=== PATIENT | female | born 1945 | race Asian ===

== ENCOUNTER 2020-06-20 01:09 | Emergency (ER) | payer MEDICARE, BC ==
[~2020-06-20] VITALS: Ht 162.6 cm; Wt 49.9 kg
--- NOTE | 2020-06-20 01:32 | NUR ---
QUEENIED at bedside to take report and follow up with ptJt Whaley #[id number], #[id number]
[2020-06-20] MEDS: ONDANSETRON HCL 4 MG TABLET PO ONE (01:43)
[2020-06-20] MEDS ORDERED: HYDROMORPHONE 1 MG/1 ML DISP.SYRIN ONE ×2 (01:49→02:48)
[2020-06-20] MEDS ORDERED: ONDANSETRON HCL 4 MG TABLET ONE (01:51)
[2020-06-20] MEDS: HYDROMORPHONE 1 MG/1 ML DISP.SYRIN IM ONE ×2 (01:56→03:04)
[2020-06-20] MEDS ORDERED: METF-440 PO (01:58)
[2020-06-20] MEDS ORDERED: LACT1CAP57 PO (01:58)
[2020-06-20] MEDS ORDERED: DIVA250T4 PO (01:58)
[2020-06-20] MEDS ORDERED: ACET-2154 PO (01:58)
[2020-06-20] MEDS ORDERED: QUET25TA PO (01:58)
[2020-06-20] MEDS ORDERED: HYDR-3980 PO (01:58)
[2020-06-20] MEDS ORDERED: vitamin D PO (01:58)
[2020-06-20] MEDS ORDERED: DOCU100C36 PO (01:58)
[2020-06-20] MEDS ORDERED: PANT40TA49 PO (01:58)
[2020-06-20] MEDS ORDERED: ALPR0.255 PO (01:58)
[2020-06-20] MEDS ORDERED: VALS80TA2 PO (01:58)
[2020-06-20] MEDS ORDERED: LACT10SO3 PO (01:58)
[2020-06-20] MEDS ORDERED: MIRT15TA7 PO (01:58)
[2020-06-20] MEDS ORDERED: QUET50TA PO (01:58)
[2020-06-20] MEDS ORDERED: ONDA-104 PO (01:58)
[2020-06-20] MEDS ORDERED: ATOR10TA PO (01:58)
[2020-06-20 02:06] LABS: BASOPHILS % (AUTO) 0.2 % (0.0-2.0); EOSINOPHILS % (AUTO) 0.4 % (0.0-7.0); HEMATOCRIT 32.1 % (31.2-41.9); HEMOGLOBIN 10.9 g/dL (10.9-14.3); LYMPHOCYTES # (AUTO) 1.5 K/uL (20.0-40.0); LYMPHOCYTES % (AUTO) 16.7 % (20.5-51.5); MEAN CORPUSCULAR HEMOGLOBIN 33.9 uug (24.7-32.8); MEAN CORPUSCULAR HGB CONC 34 g/dL (32.3-35.6); MEAN CORPUSCULAR VOLUME 99.8 fL (75.5-95.3); MONOCYTES # (AUTO) 0.8 K/uL (2.0-10.0); MONOCYTES % (AUTO) 8.6 % (0.0-11.0); NEUTROPHILS # (AUTO) 6.6 K/uL (1.8-8.9); NEUTROPHILS % (AUTO) 74.1 % (38.5-71.5); PLATELET COUNT (AUTO) 170 K/uL (179-408); RED BLOOD CELL COUNT(AUTO) 3.21 MIL/uL (3.63-4.92); WHITE BLOOD COUNT (AUTO) 8.9 K/uL (3.8-11.8)
[2020-06-20 02:09] LABS: CREATININE 1.1 mg/dL (0.6-1.3); POTASSIUM 4.4 mmol/L (3.5-5.1)
[2020-06-20 02:14] LABS: BILIRUBIN,DIRECT 0.1 mg/dL (0.0-0.2); BILIRUBIN,TOTAL 0.2 mg/dL (0.2-1.0); TOTAL PROTEIN, SERUM 6.5 g/dL (6.4-8.2)
[2020-06-20 02:26] LABS: *BILIRUBIN,URIN NEGATIVE (NEGATIVE); *BLOOD, URINE NEGATIVE (NEGATIVE); *CLARITY,URINE CLEAR (CLEAR); *COLOR,URINE LIGHT YELLOW (YELLOW); *KETONES,URINE NEGATIVE (NEGATIVE); *UROBILINOGEN,URINE 0.2 E.U./dl (NORMAL); LEUKOCYTE ESTERASE ,URINE NEGATIVE (NEGATIVE); NITRITE, URINE NEGATIVE (NEGATIVE); UGLUCOSE NEGATIVE (NEGATIVE)
[2020-06-20] MEDS ORDERED: OXYC-128 PO ×2 (03:35→03:37)
[2020-06-20] MEDS ORDERED: MAGNESIUM CITRATE 296 ML BOTTLE ONE (04:22)
--- NOTE | 2020-06-20 04:30 | NUR ---
Pt. woke up, has been repeatedly trying to climb out of bed. Staff attempting to reorient the patient, the patient has not been cooperative. The patient is a fall risk. Repositioned patient comfortably. Will continue to monitor.
[2020-06-20] MEDS: MAGNESIUM CITRATE 296 ML BOTTLE PO ONE (04:50)
--- NOTE | 2020-06-20 04:50 | NUR ---
After recieving magnesium citrate the pt. had one vomiting episode of 500cc. The vomit appeared lópez with food chunks in it. was notified. The pt. recieved zofran odt 8mg and now has no nausea or vomiting.
[2020-06-20] MEDS ORDERED: ONDANSETRON ODT 4 MG TAB.RAPDIS ONE (05:00)
[2020-06-20] MEDS: ONDANSETRON ODT 4 MG TAB.RAPDIS SL ONE (05:01)
--- NOTE | 2020-06-20 05:10 | NUR ---
Mamadou roberto in [facility] - 06/20/20 at 0524 by JESSICA Sage eta is 6am for transport to [facility], where the pt. currently resides. Called [facility] to give report, Pan informed me they will call back to take report at 0600.
--- NOTE | 2020-06-20 05:24 | NUR ---
[facility] eta is 6am for transport to [facility], where the pt. currently resides. Called [facility] to give report, Pan informed me they will call back to take report at 0600.
--- NOTE | 2020-06-20 05:24 | NUR ---
[facility] at bedside to [facility] picker pt.
[2020-06-20] MEDS ORDERED: CLONIDINE HCL 0.1 MG TABLET ONE (05:47)
[2020-06-20] MEDS: CLONIDINE HCL 0.1 MG TABLET PO ONE (05:50)
--- NOTE | 2020-06-20 05:50 | NUR ---
No complaints of chest pain, sob.
[2020-06-20] MEDS: ALPRAZOLAM 0.25 MG TABLET PO ONE (06:41)
--- NOTE | 2020-06-20 06:53 | NUR ---
Given report to kallie emt #[phone]
[2020-06-20] MEDS: ALPRAZOLAM 0.25 MG TABLET ONE ×2 (07:05)
[2020-06-20 07:12] VITALS: BP 142/85
== END 2020-06-20 06:50 ==
LOC: ER 01:15
DX: S30.0XXA Contusion of lower back and pelvis, initial encounter (principal); W18.30XA Fall on same level, unspecified, initial encounter; Z91.81 History of falling; Y92.099 Unspecified place in other non-institutional residence as the place of occurrence of the external cause; M81.0 Age-related osteoporosis without current pathological fracture; K59.00 Constipation, unspecified; F09 Unspecified mental disorder due to known physiological condition; E78.5 Hyperlipidemia, unspecified; Z85.118 Personal history of other malignant neoplasm of bronchus and lung; E11.9 Type 2 diabetes mellitus without complications; I49.1 Atrial premature depolarization; Z79.84 Long term (current) use of oral hypoglycemic drugs; Z79.899 Other long term (current) drug therapy; G31.84 Mild cognitive impairment of uncertain or unknown etiology; Z87.440 Personal history of urinary (tract) infections
CPT/HCPCS: 36415; 70450; 72220; 80048; 80076; 81003; 84484; 85025; 85730; 93005; 96372 ×2; 99285; J1170 ×2; 70030-TC; A4663; C1758; Q0162

== ENCOUNTER 2020-06-25 01:05 | Emergency (ER) | payer MEDICARE, BC ==
[~2020-06-25] VITALS: Ht 162.6 cm; Wt 49.9 kg
[~2020-06-25 01:05] MED LIST: ACET-2154 PO; ALPR0.255 PO; ATOR10TA PO; DIVA250T4 PO; DOCU100C36 PO; HYDR-3980 PO; LACT10SO3 PO; LACT1CAP57 PO; METF-440 PO; MIRT15TA7 PO; ONDA-104 PO; OXYC-128 PO; PANT40TA49 PO; QUET25TA PO; QUET50TA PO; VALS80TA2 PO; vitamin D PO
--- NOTE | 2020-06-25 01:05 | NUR ---
Patient BIB [facility] report number [id number]. C/C: [place] [facility] [place] Per [employer] senior director of [employer], patient has history of multiple fall incidences in the past.
--- NOTE | 2020-06-25 01:08 | NUR ---
MD Nj in room to do MSE.
[2020-06-25] MEDS ORDERED: MORPHINE SULFATE 2 MG/1 ML DISP.SYRIN IV ONE (01:15)
[2020-06-25] MEDS ORDERED: MORPHINE SULFATE 4 MG/1 ML DISP.SYRIN ONE (01:35)
[2020-06-25 01:39] LABS: BASOPHILS % (AUTO) 0.2 % (0.0-2.0); EOSINOPHILS % (AUTO) 0.1 % (0.0-7.0); HEMATOCRIT 37.5 % (31.2-41.9); HEMOGLOBIN 12.6 g/dL (10.9-14.3); LYMPHOCYTES # (AUTO) 1.9 K/uL (20.0-40.0); LYMPHOCYTES % (AUTO) 21.1 % (20.5-51.5); MEAN CORPUSCULAR HEMOGLOBIN 33.4 uug (24.7-32.8); MEAN CORPUSCULAR HGB CONC 34 g/dL (32.3-35.6); MEAN CORPUSCULAR VOLUME 99.4 fL (75.5-95.3); MONOCYTES # (AUTO) 0.6 K/uL (2.0-10.0); MONOCYTES % (AUTO) 6.8 % (0.0-11.0); NEUTROPHILS # (AUTO) 6.4 K/uL (1.8-8.9); NEUTROPHILS % (AUTO) 71.8 % (38.5-71.5); PLATELET COUNT (AUTO) 180 K/uL (179-408); RED BLOOD CELL COUNT(AUTO) 3.78 MIL/uL (3.63-4.92); WHITE BLOOD COUNT (AUTO) 8.9 K/uL (3.8-11.8)
--- NOTE | 2020-06-25 01:39 | NUR ---
respiratory support technician in room to take patient to CT scan.
[2020-06-25 01:54] LABS: BILIRUBIN,DIRECT 0.1 mg/dL (0.0-0.2); BILIRUBIN,TOTAL 0.2 mg/dL (0.2-1.0); CREATININE 0.6 mg/dL (0.6-1.3); POTASSIUM 2.9 mmol/L (3.5-5.1)
[2020-06-25] MEDS ORDERED: diphenhydrAMINE 25 MG CAP PO ONE ×2 (02:15→02:28)
[2020-06-25] MEDS ORDERED: POTASSIUM CHLORIDE 20 MEQ TAB.PRT.SR PO ONE (02:15)
[2020-06-25] MEDS ORDERED: POTASSIUM CHLORIDE 20 MEQ TAB.PRT.SR ONE (02:21)
--- NOTE | 2020-06-25 02:30 | NUR ---
Patient resting on bed, requesting water to drink, and given water to drink.
[2020-06-25 02:57] LABS: *BILIRUBIN,URIN NEGATIVE (NEGATIVE); *BLOOD, URINE NEGATIVE (NEGATIVE); *CLARITY,URINE CLEAR (CLEAR); *COLOR,URINE YELLOW (YELLOW); *KETONES,URINE NEGATIVE (NEGATIVE); *UROBILINOGEN,URINE 0.2 E.U./dl (NORMAL); LEUKOCYTE ESTERASE ,URINE TRACE (NEGATIVE); NITRITE, URINE NEGATIVE (NEGATIVE); PH,URINE 6.5 (5.0-8.0); UGLUCOSE NEGATIVE (NEGATIVE)
[2020-06-25] MEDS ORDERED: ONDANSETRON 4 MG/2 ML VIAL ONE (02:57)
[2020-06-25] MEDS ORDERED: ONDANSETRON 4 MG/2 ML VIAL IM ONE (03:00)
--- NOTE | 2020-06-25 03:00 | NUR ---
[facility] at bedside to prepare patient for transport back to her SNF.
[2020-06-25 03:06] LABS: RBC,URINE 0-3 /HPF (0-3)
[2020-06-25 03:07] LABS: BACTERIA,URINE FEW /HPF (NONE SEEN); MUCUS,URINE FEW /LPF (0-FEW); SQUAMOUS EPITHELIAL CELL,UR FEW /HPF (NONE SEEN); URINE AMORPHOUS URATE FEW /HPF
[2020-06-25] MEDS ORDERED: CEPH500C2 PO ×2 (03:08→03:09)
--- NOTE | 2020-06-25 03:15 | NUR ---
Patient discharged to back to her SNF in stable condition. Written and verbal after care instructions given. Patient verbalizes understanding of instructions. Stressed follow up or return to ER for worsening s/s. Patient was transported home via [facility] [address], V/S stable, left with all her personal belongings.
[2020-06-25 03:18] VITALS: BP 164/91
== END 2020-06-25 03:18 ==
LOC: ER 01:06
DX: S09.90XA Unspecified injury of head, initial encounter (principal); S32.10XA Unspecified fracture of sacrum, initial encounter for closed fracture; S32.059A Unspecified fracture of fifth lumbar vertebra, initial encounter for closed fracture; W01.0XXA Fall on same level from slipping, tripping and stumbling without subsequent striking against object, initial encounter; Y92.121 Bathroom in nursing home as the place of occurrence of the external cause; E87.6 Hypokalemia; M85.80 Other specified disorders of bone density and structure, unspecified site; R91.8 Other nonspecific abnormal finding of lung field; N30.90 Cystitis, unspecified without hematuria; Z83.3 Family history of diabetes mellitus; Z82.49 Family history of ischemic heart disease and other diseases of the circulatory system; I67.2 Cerebral atherosclerosis
CPT/HCPCS: 36415; 70450; 71045; 72125; 72131; 72192; 80048; 80076; 81001; 84484; 85025; 85730; 87077; 87086; 93005; 96372; 96374; 99285; J2270; J2405; Q0163; 70030-TC; A4663

== ENCOUNTER 2020-06-27 11:14 | Inpatient (IN) | payer MEDICARE, BC ==
[~2020-06-27] VITALS: Ht 162.6 cm; Wt 49.9 kg
[~2020-06-27 11:14] MED LIST changes: +CEPH500C2 PO
[2020-06-27] MEDS ORDERED: IV NORMAL SALINE 1000 ML BAG IV ONE (11:45)
[2020-06-27] MEDS ORDERED: DIATR MEGLU/DIATRIZOATE SODIUM 120 ML BOTTLE PO ONE (11:45)
[2020-06-27] MEDS ORDERED: DIATR MEGLU/DIATRIZOATE SODIUM 30 ML BOTTLE ONE (12:01)
[2020-06-27] MEDS ORDERED: IOHEXOL 300MG/ML 100 ML INFUS..BTL ONE (12:01)
[2020-06-27] MEDS ORDERED: SWABABLE VALVE TRANSFER SET EA MC ONE (12:01)
[2020-06-27] MEDS ORDERED: IV NORMAL SALINE 250 ML IV ONE (12:01)
[2020-06-27 12:15] LABS: BASOPHILS % (AUTO) 0.4 % (0.0-2.0); EOSINOPHILS % (AUTO) 0.1 % (0.0-7.0); HEMATOCRIT 32.9 % (31.2-41.9); HEMOGLOBIN 10.9 g/dL (10.9-14.3); LYMPHOCYTES % (AUTO) 15.2 % (20.5-51.5); MEAN CORPUSCULAR HEMOGLOBIN 33.1 uug (24.7-32.8); MEAN CORPUSCULAR HGB CONC 33 g/dL (32.3-35.6); MEAN CORPUSCULAR VOLUME 100.1 fL (75.5-95.3); MONOCYTES # (AUTO) 0.6 K/uL (2.0-10.0); MONOCYTES % (AUTO) 8.5 % (0.0-11.0); NEUTROPHILS # (AUTO) 5.1 K/uL (1.8-8.9); NEUTROPHILS % (AUTO) 75.8 % (38.5-71.5); PLATELET COUNT (AUTO) 151 K/uL (179-408); RED BLOOD CELL COUNT(AUTO) 3.28 MIL/uL (3.63-4.92); WHITE BLOOD COUNT (AUTO) 6.7 K/uL (3.8-11.8)
[2020-06-27 12:22] LABS: CREATININE 0.9 mg/dL (0.6-1.3)
[2020-06-27 12:28] LABS: BILIRUBIN,DIRECT 0.1 mg/dL (0.0-0.2); BILIRUBIN,TOTAL 0.3 mg/dL (0.2-1.0); TOTAL PROTEIN, SERUM 6.5 g/dL (6.4-8.2)
[2020-06-27] MEDS ORDERED: ONDANSETRON 4 MG/2 ML VIAL IV ONE (12:45)
[2020-06-27] MEDS ORDERED: MORPHINE SULFATE 4 MG/1 ML DISP.SYRIN IV ONE (12:45)
[2020-06-27 13:08] LABS: *BILIRUBIN,URIN NEGATIVE (NEGATIVE); *BLOOD, URINE 2+ (NEGATIVE); *CLARITY,URINE CLEAR (CLEAR); *COLOR,URINE DARK YELLOW (YELLOW); *KETONES,URINE NEGATIVE (NEGATIVE); *UROBILINOGEN,URINE 0.2 E.U./dl (NORMAL); LEUKOCYTE ESTERASE ,URINE TRACE (NEGATIVE); NITRITE, URINE NEGATIVE (NEGATIVE); UGLUCOSE NEGATIVE (NEGATIVE)
[2020-06-27] MEDS ORDERED: MORPHINE SULFATE 4 MG/1 ML DISP.SYRIN ONE (13:15)
[2020-06-27] MEDS ORDERED: ONDANSETRON 4 MG/2 ML VIAL ONE (13:15)
[2020-06-27] MEDS ORDERED: LORAZEPAM 2 MG/1 ML VIAL ONE (14:29)
[2020-06-27] MEDS ORDERED: LORAZEPAM 2 MG/1 ML VIAL IV ONE (14:30)
[2020-06-27 14:39] LABS: BACTERIA,URINE FEW /HPF (NONE SEEN); MUCUS,URINE FEW /LPF (0-FEW); SQUAMOUS EPITHELIAL CELL,UR FEW /HPF (NONE SEEN); URINE AMORPHOUS URATE FEW /HPF
[2020-06-27 17:00] VITALS: BP 158/65
[2020-06-27] MEDS ORDERED: QUETIAPINE FUMARATE 25 MG TABLET PO PRN (18:30)
[2020-06-27] MEDS ORDERED: MAGNESIUM HYDROXIDE 30 ML LIQUID UDC PO PRN (18:30)
[2020-06-27] MEDS ORDERED: Z GUARD REMEDY PASTE 57 GM TUBE TOP PRN (18:30)
[2020-06-27] MEDS ORDERED: ALPRAZOLAM 0.25 MG TABLET PO PRN (18:30)
[2020-06-27] MEDS ORDERED: DEXTROSE 50% 50 ML DISP.SYRIN IV PRN (19:15)
[2020-06-27] MEDS ORDERED: BISACODYL 5 MG TABLET.DR PO ONE (19:30)
[2020-06-27 20:00] VITALS: BP 124/73
[2020-06-27] MEDS: ATORVASTATIN 10 MG TABLET PO SCH (20:07)
[2020-06-27] MEDS: QUETIAPINE FUMARATE 25 MG TABLET PO SCH (20:07)
[2020-06-27] MEDS: METFORMIN HCL 500 MG TABLET PO SCH (20:07)
[2020-06-27] MEDS: CEFTRIAXONE 1 G in IV DEXTROSE 5% 50 ML IV SCH (20:20)
[2020-06-27] MEDS: BLOOD SUGAR DIAGNOSTIC 1 EACH STRIP VI SCH (20:32)
[2020-06-27] MEDS: INSULIN REGULAR, HUMAN 300 UNIT/3 ML VIAL SQ PRN (20:36)
[2020-06-27] MEDS ORDERED: Medication Not On Formulary EA (Quetiapine Fumarate (Seroquel) 50 MG) PO SCH (21:00)
[2020-06-27] MEDS ORDERED: MIRTAZAPINE 15 MG TABLET PO SCH (21:00)
[2020-06-27] MEDS: HYDROMORPHONE 1 MG/1 ML DISP.SYRIN IV PRN (22:42)
[2020-06-28 04:00] VITALS: BP 113/65
[2020-06-28] MEDS: HYDROMORPHONE 1 MG/1 ML DISP.SYRIN IV PRN ×2 (05:29→13:28)
[2020-06-28] MEDS: PANTOPRAZOLE SODIUM 40 MG TABLET.DR PO SCH (06:05)
[2020-06-28 06:37] LABS: BASOPHILS % (AUTO) 0.4 % (0.0-2.0); EOSINOPHILS % (AUTO) 0.1 % (0.0-7.0); HEMATOCRIT 32.9 % (31.2-41.9); HEMOGLOBIN 10.9 g/dL (10.9-14.3); LYMPHOCYTES # (AUTO) 1.2 K/uL (20.0-40.0); LYMPHOCYTES % (AUTO) 15.9 % (20.5-51.5); MEAN CORPUSCULAR HGB CONC 33 g/dL (32.3-35.6); MEAN CORPUSCULAR VOLUME 99.3 fL (75.5-95.3); MONOCYTES # (AUTO) 0.6 K/uL (2.0-10.0); MONOCYTES % (AUTO) 8.5 % (0.0-11.0); NEUTROPHILS # (AUTO) 5.7 K/uL (1.8-8.9); NEUTROPHILS % (AUTO) 75.1 % (38.5-71.5); PLATELET COUNT (AUTO) 142 K/uL (179-408); RED BLOOD CELL COUNT(AUTO) 3.32 MIL/uL (3.63-4.92); WHITE BLOOD COUNT (AUTO) 7.6 K/uL (3.8-11.8)
[2020-06-28] MEDS: BLOOD SUGAR DIAGNOSTIC 1 EACH STRIP VI SCH ×4 (06:37→21:54)
[2020-06-28 06:59] LABS: BILIRUBIN,TOTAL 0.3 mg/dL (0.2-1.0); CREATININE 0.8 mg/dL (0.6-1.3); MAGNESIUM 2.2 mg/dL (1.8-2.4); PHOSPHOROUS 3.5 mg/dL (2.5-4.9); POTASSIUM 4.3 mmol/L (3.5-5.1); TOTAL PROTEIN, SERUM 6.1 g/dL (6.4-8.2)
[2020-06-28 07:14] LABS: THYROID STIMULATING HORMONE 1.084 mIU/mL (0.358-3.740)
[2020-06-28] MEDS: METFORMIN HCL 500 MG TABLET PO SCH ×2 (08:00→08:33)
[2020-06-28] MEDS ORDERED: SWABABLE VALVE TRANSFER SET EA MC ONE (08:19)
[2020-06-28] MEDS ORDERED: IV NORMAL SALINE 250 ML IV ONE (08:20)
[2020-06-28] MEDS ORDERED: IOHEXOL 300MG/ML 100 ML INFUS..BTL ONE (08:20)
[2020-06-28] MEDS: LACTULOSE 20 G/30 ML LIQUID UDC PO SCH (08:33)
[2020-06-28] MEDS: DOCUSATE SODIUM 100 MG CAPSULE PO SCH ×2 (08:33→17:00)
[2020-06-28] MEDS: CULTURELLE CAPSULE PO SCH ×2 (08:34→17:36)
[2020-06-28] MEDS: VALSARTAN 80 MG TABLET PO SCH (08:34)
[2020-06-28] MEDS: DIVALPROEX 250 MG TABLET.DR PO SCH ×2 (08:34→17:36)
[2020-06-28] MEDS: CHOLECALCIFEROL 1,000 UNIT TABLET PO SCH (08:34)
[2020-06-28] MEDS: LORAZEPAM 2 MG/1 ML VIAL IV PRN (11:28)
[2020-06-28] MEDS: INSULIN REGULAR, HUMAN 300 UNIT/3 ML VIAL SQ PRN ×2 (11:34→21:58)
[2020-06-28 12:00] VITALS: BP 122/78
[2020-06-28] MEDS: TAGRISSO 80 MG TABLET PO SCH (17:36)
[2020-06-28] MEDS: ONDANSETRON 4 MG/2 ML VIAL IV PRN (17:43)
[2020-06-28 20:00] VITALS: BP 131/72
[2020-06-28] MEDS: CEFTRIAXONE 1 G in IV DEXTROSE 5% 50 ML IV SCH (21:29)
[2020-06-28] MEDS: LIDOCAINE 5% PATCH TD SCH (21:30)
[2020-06-28] MEDS: QUETIAPINE FUMARATE 25 MG TABLET PO SCH (21:40)
[2020-06-28] MEDS: ATORVASTATIN 10 MG TABLET PO SCH (21:40)
[2020-06-28] MEDS: MELATONIN 3 MG TABLET PO SCH (21:40)
[2020-06-29 04:33] VITALS: BP 115/58
[2020-06-29] MEDS: PANTOPRAZOLE SODIUM 40 MG TABLET.DR PO SCH (06:03)
[2020-06-29 06:38] LABS: BASOPHILS % (AUTO) 0.2 % (0.0-2.0); HEMATOCRIT 32.4 % (31.2-41.9); HEMOGLOBIN 10.9 g/dL (10.9-14.3); LYMPHOCYTES # (AUTO) 1.4 K/uL (20.0-40.0); LYMPHOCYTES % (AUTO) 12.3 % (20.5-51.5); MEAN CORPUSCULAR HEMOGLOBIN 33.3 uug (24.7-32.8); MEAN CORPUSCULAR HGB CONC 34 g/dL (32.3-35.6); MEAN CORPUSCULAR VOLUME 98.6 fL (75.5-95.3); MONOCYTES # (AUTO) 0.9 K/uL (2.0-10.0); MONOCYTES % (AUTO) 8.3 % (0.0-11.0); NEUTROPHILS # (AUTO) 8.8 K/uL (1.8-8.9); NEUTROPHILS % (AUTO) 79.2 % (38.5-71.5); PLATELET COUNT (AUTO) 150 K/uL (179-408); RED BLOOD CELL COUNT(AUTO) 3.28 MIL/uL (3.63-4.92); WHITE BLOOD COUNT (AUTO) 11.1 K/uL (3.8-11.8)
[2020-06-29] MEDS: BLOOD SUGAR DIAGNOSTIC 1 EACH STRIP VI SCH ×4 (06:39→20:58)
[2020-06-29 07:04] LABS: CREATININE 0.8 mg/dL (0.6-1.3); POTASSIUM 4.2 mmol/L (3.5-5.1)
[2020-06-29 08:00] VITALS: BP 145/71
[2020-06-29] MEDS: VALSARTAN 80 MG TABLET PO SCH (08:12)
[2020-06-29] MEDS: CHOLECALCIFEROL 1,000 UNIT TABLET PO SCH (08:12)
[2020-06-29] MEDS: CULTURELLE CAPSULE PO SCH ×2 (08:12→16:32)
[2020-06-29] MEDS: HYDROCODONE/APAP 5-325MG TABLET PO PRN ×3 (08:12→20:58)
[2020-06-29] MEDS: DOCUSATE SODIUM 100 MG CAPSULE PO SCH ×2 (08:12→16:32)
[2020-06-29] MEDS: DIVALPROEX 250 MG TABLET.DR PO SCH ×2 (08:12→16:32)
[2020-06-29] MEDS: LACTULOSE 20 G/30 ML LIQUID UDC PO SCH (08:13)
[2020-06-29] MEDS: SERTRALINE HCL 50 MG TABLET PO SCH (08:13)
[2020-06-29] MEDS: LIDOCAINE 5% PATCH TD SCH (08:14)
[2020-06-29] MEDS: TAGRISSO 80 MG TABLET PO SCH (10:19)
[2020-06-29 12:00] VITALS: BP 125/53
[2020-06-29 16:00] VITALS: BP 148/69
[2020-06-29] MEDS: INSULIN REGULAR, HUMAN 300 UNIT/3 ML VIAL SQ PRN ×2 (17:04→21:00)
[2020-06-29] MEDS: ATORVASTATIN 10 MG TABLET PO SCH (20:02)
[2020-06-29] MEDS: MELATONIN 3 MG TABLET PO SCH (20:02)
[2020-06-29] MEDS: QUETIAPINE FUMARATE 25 MG TABLET PO SCH (20:02)
[2020-06-29 20:17] VITALS: BP 144/62
[2020-06-29] MEDS: CEFTRIAXONE 1 G in IV DEXTROSE 5% 50 ML IV SCH (20:20)
[2020-06-29] MEDS: LORAZEPAM 2 MG/1 ML VIAL IV PRN (22:00)
[2020-06-30] MEDS: ACETAMINOPHEN 325 MG TABLET PO PRN (00:52)
[2020-06-30] MEDS: HYDROCODONE/APAP 5-325MG TABLET PO PRN ×4 (03:35→18:16)
[2020-06-30 04:51] VITALS: BP 148/47
[2020-06-30] MEDS: PANTOPRAZOLE SODIUM 40 MG TABLET.DR PO SCH (06:13)
[2020-06-30 06:22] LABS: BASOPHILS % (AUTO) 0.3 % (0.0-2.0); EOSINOPHILS % (AUTO) 0.5 % (0.0-7.0); HEMATOCRIT 29.6 % (31.2-41.9); HEMOGLOBIN 9.8 g/dL (10.9-14.3); LYMPHOCYTES # (AUTO) 1.7 K/uL (20.0-40.0); LYMPHOCYTES % (AUTO) 26.3 % (20.5-51.5); MEAN CORPUSCULAR HEMOGLOBIN 33.2 uug (24.7-32.8); MEAN CORPUSCULAR HGB CONC 33 g/dL (32.3-35.6); MEAN CORPUSCULAR VOLUME 99.9 fL (75.5-95.3); MONOCYTES # (AUTO) 0.7 K/uL (2.0-10.0); MONOCYTES % (AUTO) 10.2 % (0.0-11.0); NEUTROPHILS # (AUTO) 4.1 K/uL (1.8-8.9); NEUTROPHILS % (AUTO) 62.7 % (38.5-71.5); PLATELET COUNT (AUTO) 119 K/uL (179-408); RED BLOOD CELL COUNT(AUTO) 2.96 MIL/uL (3.63-4.92); WHITE BLOOD COUNT (AUTO) 6.5 K/uL (3.8-11.8)
[2020-06-30] MEDS: BLOOD SUGAR DIAGNOSTIC 1 EACH STRIP VI SCH ×4 (06:36→20:17)
[2020-06-30 06:57] LABS: POTASSIUM 4.2 mmol/L (3.5-5.1)
[2020-06-30] MEDS: DOCUSATE SODIUM 100 MG CAPSULE PO SCH ×2 (08:53→16:30)
[2020-06-30] MEDS: SERTRALINE HCL 50 MG TABLET PO SCH (08:54)
[2020-06-30] MEDS: LIDOCAINE 5% PATCH TD SCH ×2 (08:57→09:00)
[2020-06-30] MEDS: DIVALPROEX 250 MG TABLET.DR PO SCH ×2 (08:57→18:06)
[2020-06-30] MEDS: VALSARTAN 80 MG TABLET PO SCH (08:57)
[2020-06-30] MEDS: LACTULOSE 20 G/30 ML LIQUID UDC PO SCH (08:57)
[2020-06-30] MEDS: CULTURELLE CAPSULE PO SCH ×2 (08:58→18:06)
[2020-06-30] MEDS: CHOLECALCIFEROL 1,000 UNIT TABLET PO SCH (08:58)
[2020-06-30] MEDS: TAGRISSO 80 MG TABLET PO SCH ×2 (09:00→11:28)
[2020-06-30] MEDS ORDERED: LACTULOSE 20 G/30 ML LIQUID UDC PO PRN (09:45)
[2020-06-30] MEDS ORDERED: IV NS 1000 ML 1,000 ML IV ONE (10:00)
[2020-06-30 11:36] VITALS: BP 137/52
[2020-06-30] MEDS: INSULIN REGULAR, HUMAN 300 UNIT/3 ML VIAL SQ PRN ×2 (11:50→20:54)
[2020-06-30] MEDS: LORAZEPAM 2 MG/1 ML VIAL IV PRN ×2 (14:16→22:29)
[2020-06-30 16:00] VITALS: BP 131/54
[2020-06-30] MEDS: METFORMIN HCL 500 MG TABLET PO SCH (18:06)
[2020-06-30 20:00] VITALS: BP 163/55
[2020-06-30] MEDS: CEFTRIAXONE 1 G in IV DEXTROSE 5% 50 ML IV SCH (20:06)
[2020-06-30] MEDS: ATORVASTATIN 10 MG TABLET PO SCH (20:07)
[2020-06-30] MEDS: MELATONIN 3 MG TABLET PO SCH (20:07)
[2020-06-30] MEDS: QUETIAPINE FUMARATE 25 MG TABLET PO SCH (20:07)
[2020-07-01] VITALS: BP 152/65
[2020-07-01] MEDS: HYDROCODONE/APAP 5-325MG TABLET PO PRN ×3 (00:05→14:12)
[2020-07-01] MEDS: ACETAMINOPHEN 325 MG TABLET PO PRN ×2 (03:05→11:35)
[2020-07-01] MEDS: HYDROMORPHONE 1 MG/1 ML DISP.SYRIN IV PRN (03:28)
[2020-07-01 04:00] VITALS: BP 148/73
[2020-07-01] MEDS: LORAZEPAM 2 MG/1 ML VIAL IV PRN (04:27)
[2020-07-01] MEDS: ONDANSETRON 4 MG/2 ML VIAL IV PRN (04:44)
[2020-07-01] MEDS: PANTOPRAZOLE SODIUM 40 MG TABLET.DR PO SCH (06:29)
[2020-07-01] MEDS: BLOOD SUGAR DIAGNOSTIC 1 EACH STRIP VI SCH ×2 (06:35→11:53)
[2020-07-01 06:48] LABS: BASOPHILS % (AUTO) 0.3 % (0.0-2.0); EOSINOPHILS % (AUTO) 0.4 % (0.0-7.0); HEMATOCRIT 29.7 % (31.2-41.9); LYMPHOCYTES # (AUTO) 1.5 K/uL (20.0-40.0); LYMPHOCYTES % (AUTO) 23.3 % (20.5-51.5); MEAN CORPUSCULAR HEMOGLOBIN 33.7 uug (24.7-32.8); MEAN CORPUSCULAR HGB CONC 34 g/dL (32.3-35.6); MEAN CORPUSCULAR VOLUME 99.9 fL (75.5-95.3); MONOCYTES # (AUTO) 0.6 K/uL (2.0-10.0); MONOCYTES % (AUTO) 8.9 % (0.0-11.0); NEUTROPHILS # (AUTO) 4.2 K/uL (1.8-8.9); NEUTROPHILS % (AUTO) 67.1 % (38.5-71.5); PLATELET COUNT (AUTO) 124 K/uL (179-408); RED BLOOD CELL COUNT(AUTO) 2.97 MIL/uL (3.63-4.92); WHITE BLOOD COUNT (AUTO) 6.2 K/uL (3.8-11.8)
[2020-07-01 06:53] LABS: CREATININE 0.8 mg/dL (0.6-1.3); POTASSIUM 3.4 mmol/L (3.5-5.1)
[2020-07-01] MEDS: METFORMIN HCL 500 MG TABLET PO SCH (08:00)
[2020-07-01] MEDS ORDERED: POTASSIUM CHLORIDE 20 MEQ TAB.PRT.SR PO ONE ×2 (08:00→10:30)
[2020-07-01] MEDS: CHOLECALCIFEROL 1,000 UNIT TABLET PO SCH (09:31)
[2020-07-01] MEDS: VALSARTAN 80 MG TABLET PO SCH (09:31)
[2020-07-01] MEDS: DIVALPROEX 250 MG TABLET.DR PO SCH (09:31)
[2020-07-01] MEDS: SERTRALINE HCL 50 MG TABLET PO SCH (09:32)
[2020-07-01] MEDS: CULTURELLE CAPSULE PO SCH (09:32)
[2020-07-01] MEDS: DOCUSATE SODIUM 100 MG CAPSULE PO SCH (09:32)
[2020-07-01] MEDS: TAGRISSO 80 MG TABLET PO SCH (09:33)
[2020-07-01] MEDS: LIDOCAINE 5% PATCH TD SCH (09:40)
[2020-07-01 11:00] VITALS: BP 164/74
[2020-07-01] MEDS ORDERED: SERT-439 PO (12:10)
[2020-07-01] MEDS ORDERED: LIDO30AD10 TD (12:10)
== END 2020-07-01 14:46 | DRG 388 ==
LOC: ER 11:14 → MEDSURG3 16:02
PROVIDERS: ADMIT Nurse Practitioner Acute Care; ATTEND Nurse Practitioner Acute Care
PROC: 009U3ZX Drainage of Spinal Canal, Percutaneous Approach, Diagnostic (ICD-10-PCS; principal; 2020-06-29)
PROC: B01BYZZ Fluoroscopy of Spinal Cord using Other Contrast (ICD-10-PCS; 2020-06-29)
DX: K56.41 Fecal impaction (principal); G93.41 Metabolic encephalopathy; C34.90 Malignant neoplasm of unspecified part of unspecified bronchus or lung; D68.59 Other primary thrombophilia; N39.0 Urinary tract infection, site not specified; E44.1 Mild protein-calorie malnutrition; Z68.1 Body mass index [BMI] 19.9 or less, adult; Z74.09 Other reduced mobility; D63.8 Anemia in other chronic diseases classified elsewhere; E11.9 Type 2 diabetes mellitus without complications; E78.5 Hyperlipidemia, unspecified; I10 Essential (primary) hypertension; R51.9 Headache, unspecified; E88.09 Other disorders of plasma-protein metabolism, not elsewhere classified; R79.89 Other specified abnormal findings of blood chemistry; N28.1 Cyst of kidney, acquired; F32.9 Major depressive disorder, single episode, unspecified; R53.1 Weakness; F43.23 Adjustment disorder with mixed anxiety and depressed mood; S32.059D Unspecified fracture of fifth lumbar vertebra, subsequent encounter for fracture with routine healing; F41.9 Anxiety disorder, unspecified; M54.5 Low back pain; B96.89 Other specified bacterial agents as the cause of diseases classified elsewhere; Z79.84 Long term (current) use of oral hypoglycemic drugs; Z20.822 Contact with and (suspected) exposure to COVID-19; S32.19XD Other fracture of sacrum, subsequent encounter for fracture with routine healing; X58.XXXD Exposure to other specified factors, subsequent encounter; Z91.81 History of falling
CPT/HCPCS: 36415; 62270; 70030-TC; 70450; 70553; 71045; 71260; 72125; 72131; 72192; 83605; 83690; 83735; 84100; 84443; 85025; 85610; 85730; 87040; 87077; 87086; 87205; 93005; A4663; G0378; J0696; J1170; J1815; J2060; J2270; J2405; J3490; J7030; J7040; J7050; J7060; Q9963; Q9967